=== PATIENT | male | born 2000 | race Caucasian/White ===

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

== ENCOUNTER 2020-07-30 17:19 | Emergency (ER) | payer OTHER ==
[~2020-07-30] VITALS: Ht 180.3 cm; Wt 58.1 kg
[~2020-07-30 17:19] MED LIST changes: +NORCO 5-325 TA1 EACH PO; +PREDNISONE50 MG PO
[2020-07-30] MEDS ORDERED: AMOXICILLIN500 M2 PO (17:58)
== END 2020-07-30 18:15 | disposition home or self-care (01) ==
LOC: ED 17:19
DX: K08.89 Other specified disorders of teeth and supporting structures (principal); J45.909 Unspecified asthma, uncomplicated; Z88.8 Allergy status to other drugs, medicaments and biological substances; Z79.899 Other long term (current) drug therapy

== ENCOUNTER 2020-09-12 19:48 | Emergency (ER) | payer OTHER ==
[~2020-09-12] VITALS: Ht 177.8 cm; Wt 54.4 kg
[~2020-09-12 19:48] MED LIST changes: +AMOXICILLIN500 M2 PO
== END 2020-09-13 01:41 | disposition home or self-care (01) ==
LOC: ED 19:48
DX: S56.413A Strain of extensor muscle, fascia and tendon of right middle finger at forearm level, initial encounter (principal); S60.031A Contusion of right middle finger without damage to nail, initial encounter; W22.8XXA Striking against or struck by other objects, initial encounter; Y93.89 Activity, other specified; Y92.89 Other specified places as the place of occurrence of the external cause; Y99.9 Unspecified external cause status

== ENCOUNTER 2020-10-12 00:01 | Emergency (ER) | payer OTHER ==
[~2020-10-12] VITALS: Ht 177.8 cm; Wt 55.3 kg
== END 2020-10-12 00:17 | disposition home or self-care (01) ==
LOC: ED 00:01
DX: T50.B95A Adverse effect of other viral vaccines, initial encounter (principal); F17.200 Nicotine dependence, unspecified, uncomplicated; Z88.8 Allergy status to other drugs, medicaments and biological substances; Z79.899 Other long term (current) drug therapy; Y92.89 Other specified places as the place of occurrence of the external cause

== ENCOUNTER → 2020-12-11 | Outpatient (CLI) | payer OTHER ==
[2020-12-11 11:35] LABS: HEMATOCRIT 47.1 % (42.0-52.0); MEAN CELL VOLUME 87.9 fl (80.0-94.0); MEAN CORPUSCULAR HGB 29.7 pg (27.0-31.0); MEAN CORPUSCULAR HGB CONC 33.8 g/dl (33.0-37.0); RED BLOOD COUNT 5.36 10*6/uL (4.50-5.90); WHITE BLOOD COUNT 4.9 10*3/uL (4.8-10.8)
[2020-12-11 12:46] LABS: ALBUMIN 4.3 gm/dl (3.1-4.5); BUN 15 mg/dl (7-24); CHLORIDE 108 mmol/L (98-107); CREATININE 0.79 mg/dL (0.70-1.30); POTASSIUM 4.2 mmol/L (3.5-5.1); SGOT/AST 14 IU/L (3-35); SGPT/ALT 24 U/L (12-78); SODIUM 140 mmol/L (136-145)
[2020-12-11 12:48] LABS: ALKALINE PHOSPHATASE 79 U/L (45-117); TOTAL PROTEIN 7.7 gm/dL (6.4-8.2)
== END | disposition home or self-care (01) ==
LOC: LAB 11:19
PROVIDERS: ATTEND Internal Medicine
DX: R63.1 Polydipsia (principal)

== ENCOUNTER 2021-03-29 09:20 | Emergency (ER) | payer OTHER ==
[2021-03-29] MEDS ORDERED: AUGMENTIN 875875 MG PO (11:49)
== END 2021-03-29 11:51 | disposition home or self-care (01) ==
LOC: ED 09:20
DX: J02.9 Acute pharyngitis, unspecified (principal); Z79.899 Other long term (current) drug therapy

== ENCOUNTER → 2021-04-16 | Outpatient (CLI) | payer OTHER ==
[2021-04-16 15:17] LABS: BASO % 0.6 % (0.0-1.0); EOS # 0.1 10*3/uL (0.0-0.4); EOS % 1.3 % (1.0-4.0); HEMATOCRIT 44.4 % (42.0-52.0); LYMPH # 1.8 10*3/uL (1.3-4.4); LYMPH % 33.9 % (27.0-41.0); MEAN CELL VOLUME 88.1 fl (80.0-94.0); MEAN CORPUSCULAR HGB 29.2 pg (27.0-31.0); MEAN CORPUSCULAR HGB CONC 33.1 g/dl (33.0-37.0); MEAN PLATELET VOLUME 10.1 fl (9.6-12.3); MONO # 0.7 10*3/uL (0.1-1.0); MONO % 12.6 % (3.0-9.0); NEUT # 2.8 10*3/uL (2.3-7.9); NEUT % 51.4 % (47.0-73.0); PLATELET COUNT AUTOMATED 344 10*3/uL (130-400); RED BLOOD COUNT 5.04 10*6/uL (4.50-5.90); RED CELL DISTRI WIDTH 11.9 % (0-14.5); WHITE BLOOD COUNT 5.4 10*3/uL (4.8-10.8)
[2021-04-16 15:54] LABS: THYROID STIM HORMONE (HS) 1.65 uIU/ml (0.358-4.75)
== END | disposition home or self-care (01) ==
LOC: LAB 14:49
PROVIDERS: ATTEND Psychiatry & Neurology Neurology
DX: Z79.899 Other long term (current) drug therapy (principal)

== ENCOUNTER 2021-05-20 23:20 | Emergency (ER) | payer OTHER ==
[~2021-05-20] VITALS: Ht 177.8 cm; Wt 54.4 kg
[2021-05-20] MEDS ORDERED: PENICILLIN VK500 MG PO (23:40)
== END 2021-05-21 00:04 | disposition home or self-care (01) ==
LOC: ED 23:20
DX: K02.9 Dental caries, unspecified (principal); Z88.8 Allergy status to other drugs, medicaments and biological substances; Z79.899 Other long term (current) drug therapy

== ENCOUNTER 2021-07-19 22:01 | Emergency (ER) | payer OTHER ==
[~2021-07-19 22:01] MED LIST changes: +PENICILLIN VK500 MG PO
== END 2021-07-20 00:33 | disposition home or self-care (01) ==
LOC: ED 22:01
DX: S46.912A Strain of unspecified muscle, fascia and tendon at shoulder and upper arm level, left arm, initial encounter (principal); Z88.8 Allergy status to other drugs, medicaments and biological substances; Z79.899 Other long term (current) drug therapy; X58.XXXA Exposure to other specified factors, initial encounter; Y93.89 Activity, other specified; Y92.89 Other specified places as the place of occurrence of the external cause; Y99.8 Other external cause status

== ENCOUNTER 2021-08-17 11:07 | Emergency (ER) | payer OTHER ==
[~2021-08-17] VITALS: Ht 177.8 cm; Wt 58.1 kg
[2021-08-17] MEDS ORDERED: AMOXICILLIN500 M2 PO (11:52)
== END 2021-08-17 12:44 | disposition home or self-care (01) ==
LOC: ED 11:07
DX: K08.89 Other specified disorders of teeth and supporting structures (principal); Z88.8 Allergy status to other drugs, medicaments and biological substances; Z79.899 Other long term (current) drug therapy

== ENCOUNTER 2023-07-18 17:18 | Emergency (ER) | payer OTHER ==
[~2023-07-18] VITALS: Ht 177.8 cm; Wt 58.1 kg
[2023-07-18] MEDS ORDERED: ACETAMINOPHEN 325 MG/10.15 ML UDC PO ONE (17:35)
== END 2023-07-18 19:22 | disposition home or self-care (01) ==
LOC: ED 17:18
DX: B34.9 Viral infection, unspecified (principal); Z20.822 Contact with and (suspected) exposure to COVID-19; J45.909 Unspecified asthma, uncomplicated; E87.6 Hypokalemia; Z88.6 Allergy status to analgesic agent; Z88.8 Allergy status to other drugs, medicaments and biological substances; Z98.890 Other specified postprocedural states

== ENCOUNTER 2024-01-10 17:23 | Emergency (ER) | payer OTHER ==
[~2024-01-10] VITALS: Ht 177.8 cm; Wt 56.2 kg
[2024-01-10] MEDS ORDERED: Sulfamethoxazole/Trimethopri 1 TAB TAB PO ONE (18:10)
[2024-01-10] MEDS ORDERED: CETIRIZINE HYDR10 MG PO (18:24)
[2024-01-10] MEDS ORDERED: SEPTDS PO (19:11)
[2024-01-10] MEDS ORDERED: Ondansetron Hydrochloride 4 MG TAB SL ONE (19:15)
[2024-01-10] MEDS ORDERED: Acetaminophen/Oxycodone 5 MG/325 MG TABLET PO ONE (19:15)
== END 2024-01-10 19:21 | disposition home or self-care (01) ==
LOC: ED 17:23
DX: S62.522B Displaced fracture of distal phalanx of left thumb, initial encounter for open fracture (principal); Z88.6 Allergy status to analgesic agent; Z88.8 Allergy status to other drugs, medicaments and biological substances; Z98.890 Other specified postprocedural states; W23.0XXA Caught, crushed, jammed, or pinched between moving objects, initial encounter; Y93.89 Activity, other specified; Y92.89 Other specified places as the place of occurrence of the external cause; Y99.0 Civilian activity done for income or pay

== ENCOUNTER 2024-04-20 10:06 | Emergency (ER) | payer SELFPAY ==
[~2024-04-20] VITALS: Ht 177.8 cm; Wt 56.7 kg
[~2024-04-20 10:06] MED LIST changes: +CETIRIZINE HYDR10 MG PO; +SEPTDS PO
[2024-04-20] MEDS ORDERED: Acetaminophen/Oxycodone 5 MG/325 MG TABLET PO ONE (10:30)
[2024-04-20] MEDS ORDERED: Sulfamethoxazole/Trimethopri 1 TAB TAB PO ONE (10:30)
[2024-04-20] MEDS ORDERED: PERCOCET 5-3251 EACH PO (12:06)
[2024-04-20] MEDS ORDERED: SEPTDS PO (12:06)
== END 2024-04-20 12:18 | disposition home or self-care (01) ==
LOC: ED 10:06
DX: N49.2 Inflammatory disorders of scrotum (principal); J45.909 Unspecified asthma, uncomplicated; F17.290 Nicotine dependence, other tobacco product, uncomplicated; Z88.6 Allergy status to analgesic agent; Z88.8 Allergy status to other drugs, medicaments and biological substances; Z98.890 Other specified postprocedural states

== ENCOUNTER 2025-01-22 20:16 | Emergency (ER) | payer SELFPAY ==
[~2025-01-22] VITALS: Ht 177.8 cm; Wt 53.5 kg
[~2025-01-22 20:16] MED LIST changes: +PERCOCET 5-3251 EACH PO
[2025-01-22] MEDS ORDERED: Acetaminophen/Hydrocodone HP 10/325 PO ONE (20:55)
[2025-01-22 21:10] LABS: BILIRUBIN Negative (Negative); BLOOD Negative (Negative); CLARITY Clear (Clear); COLOR Yellow (Yellow); KETONE Negative (Negative); LEUKO ESTERASE Negative (Negative); NITRITE Negative (Negative); PH 7.0 (4.5-8.0); SPECIFIC GRAVITY 1.020 (1.001-1.030); UROBILINOGEN 1.0 E.U./dl (0.0-1.0)
[2025-01-22 21:32] LABS: BACTERIA TRACE; WBC 0-2 wbc/hpf (0-5)
== END 2025-01-22 21:42 | disposition short-term general hospital (02) ==
LOC: ED 20:16
PROVIDERS: Nurse Practitioner Family
DX: N50.812 Left testicular pain (principal); J45.909 Unspecified asthma, uncomplicated; Z88.8 Allergy status to other drugs, medicaments and biological substances